=== PATIENT | female | born 1955 | race Caucasian/White ===

== ENCOUNTER 2016-11-05 22:42 | Emergency (ER) | payer OTHER ==
[2016-11-05] MEDS ORDERED: OMEPRAZOLE20 M4 (23:25)
[2016-11-05] MEDS ORDERED: BLOOD PRESSURE (23:26)
[2016-11-05] MEDS ORDERED: CHOLESTEROL (23:26)
== END 2016-11-06 00:28 ==
LOC: EDMED 22:42
PROC: 2W3RX1Z Immobilization of Left Lower Leg using Splint (ICD-10-PCS; principal; 2016-11-05)
DX: S82.62XA Displaced fracture of lateral malleolus of left fibula, initial encounter for closed fracture (principal); I10 Essential (primary) hypertension; Z88.2 Allergy status to sulfonamides; X50.1XXA Overexertion from prolonged static or awkward postures, initial encounter